=== PATIENT | female | born 1965 | race Caucasian/White ===

== ENCOUNTER → 2017-12-21 | Outpatient (CLI) | payer OTHER ==
[~2017-12-21] MED LIST: ABILIFY10 MG PO; ACETAMINOPHEN325 M1 PO; ASPIRIN EC81 M1 PO; B-122500 MCG PO; B12INJ; CIPROFLOXACIN500 M1 PO; DILANTIN100 MG PO; FLEXERIL PO; IBUPROFEN 800800 M1 PO; LEVAQUIN 500 M500 M2 PO; LEVOTHYROXINE 0.1 MG PO; LIPITOR20 MG PO; MEDROLDOSEPACK PO; MINOCYCLINE HC100 M2 PO; NICOTINE TRANSD14 M1 TD; NICOTINE TRANSD21 M1 TD; NICOTINE TRANSDE7 MG TD; NORCO 5-325 TA1 EACH PO; OMEPRAZOLE 20 M20 MG PO; OSELB75 PO; PERCOCET 5-3251 EACH PO; PREDNISONE 10 M10 MG PO; PROTONIX40 M1 PO; SYNTHROID88 MCG PO; VITAMIN D1000 UNI1 PO; WELLBUTRIN 100100 MG PO; WELLBUTRIN SR150 MG PO; ZANTAC 150MG T150 MG; ZOFRAN4 MG PO
[2017-12-21 17:30] LABS: ALBUMIN 3.7 g/dL (3.4-5.0); ALKALINE PHOSPHATASE 100 U/L (46-116); ANION GAP 10 mmol/L (7-16); BUN 22 mg/dL (7-18); CALCIUM 8.6 mg/dL (8.5-10.1); CHLORIDE 104 mmol/L (98-107); CHOLESTEROL 258 mg/dL (<200); CO2 25 mmol/L (21-32); CREATININE 0.8 mg/dL (0.6-1.3); GLUCOSE 98 mg/dL (70-99); HDL CHOLESTEROL 55 mg/dL (>40); LDL CHOLESTEROL 162 mg/dL (<100); POTASSIUM 3.7 mmol/L (3.5-5.1); SGOT 19 U/L (15-37); SGPT 27 U/L (30-65); SODIUM 139 mmol/L (136-145); TC:HDL 4.7 Ratio (Not establshd); TOTAL BILIRUBIN 0.4 mg/dL (<0.1-1.0); TOTAL PROTEIN 7.3 g/dL (6.4-8.2); TRIGLYCERIDE 206 mg/dL (<150); VLDL 41 mg/dL (<40)
[2017-12-21 17:32] LABS: SERUM ASSESSMENT Clear
== END ==
LOC: M.LAB 16:30
PROVIDERS: Nurse Practitioner Family
DX: E78.5 Hyperlipidemia, unspecified (principal); E03.9 Hypothyroidism, unspecified

== ENCOUNTER → 2018-01-20 | Outpatient (CLI) | payer OTHER ==
[2018-01-20 08:10] LABS: ALBUMIN 3.4 g/dL (3.4-5.0); CALCIUM 8.5 mg/dL (8.5-10.1); CREATININE 0.8 mg/dL (0.6-1.3); TOTAL BILIRUBIN 0.2 mg/dL (<0.1-1.0); TOTAL PROTEIN 6.9 g/dL (6.4-8.2)
== END ==
LOC: M.CT 01-18 10:58
PROVIDERS: Nurse Practitioner Family
DX: Z12.31 Encounter for screening mammogram for malignant neoplasm of breast (principal); M47.892 Other spondylosis, cervical region; M48.8X4 Other specified spondylopathies, thoracic region

== ENCOUNTER → 2018-02-01 | Outpatient (CLI) | payer OTHER | LOC: M.MRI 01-30 16:12 | DX: M47.892 Other spondylosis, cervical region (principal); M47.894 Other spondylosis, thoracic region; G89.29 Other chronic pain ==

== ENCOUNTER → 2018-05-01 | Outpatient (CLI) | payer OTHER | LOC: M.RAD 16:00 | DX: M81.0 Age-related osteoporosis without current pathological fracture (principal); Z78.0 Asymptomatic menopausal state ==

== ENCOUNTER → 2018-07-20 | Outpatient (CLI) | payer OTHER ==
[2018-07-20 09:09] LABS: HEMATOCRIT 43.8 % (37.0-47.0); HEMOGLOBIN 14.5 gm/dL (12.0-15.0); MCH 29.2 pg (26.0-34.0); MCHC 33.2 g/dL (28.0-37.0); MPV 7.7 fl. (7.2-11.1); RBC 4.97 mil/uL (4.20-5.00); RDW-CV 13.8 % (10.5-14.5); WBC 8.2 thou/uL (4.0-11.0)
[2018-07-20 09:33] LABS: ALBUMIN 3.7 g/dL (3.4-5.0); ALKALINE PHOSPHATASE 96 U/L (46-116); ANION GAP 10 mmol/L (7-16); BUN 17 mg/dL (7-18); CALCIUM 8.6 mg/dL (8.5-10.1); CHLORIDE 103 mmol/L (98-107); CHOLESTEROL 224 mg/dL (<200); CO2 24 mmol/L (21-32); CREATININE 0.8 mg/dL (0.6-1.3); GLUCOSE 94 mg/dL (70-99); HDL CHOLESTEROL 54 mg/dL (>40); LDL CHOLESTEROL 141 mg/dL (<100); POTASSIUM 3.9 mmol/L (3.5-5.1); SGOT 18 U/L (15-37); SGPT 31 U/L (30-65); SODIUM 137 mmol/L (136-145); TC:HDL 4.1 Ratio (Not establshd); TOTAL BILIRUBIN 0.3 mg/dL (<0.1-1.0); TOTAL PROTEIN 7.3 g/dL (6.4-8.2); TRIGLYCERIDE 145 mg/dL (<150); VLDL 29 mg/dL (<40)
[2018-07-20 09:35] LABS: SERUM ASSESSMENT Clear
[2018-07-20 10:41] LABS: IRON 65 ug/dL (50-175)
[2018-07-20 11:36] LABS: % SATURATION 16 % (20-39)
[2018-07-20 21:07] LABS: GLYCOHEMOGLOBIN (HGB A1C) 5.6 % (4.8-5.6)
== END ==
LOC: M.LAB 08:25
PROVIDERS: Nurse Practitioner Family
DX: E78.2 Mixed hyperlipidemia (principal); E03.9 Hypothyroidism, unspecified; E55.9 Vitamin D deficiency, unspecified; I10 Essential (primary) hypertension; R53.83 Other fatigue

== ENCOUNTER 2018-08-23 18:38 | Emergency (ER) | payer OTHER ==
[~2018-08-23] VITALS: Ht 175.3 cm; Wt 86.2 kg
[2018-08-23] MEDS ORDERED: MELOXICAM15 MG PO (18:47)
[2018-08-23] MEDS ORDERED: FOSAMAX 70 MG T70 MG PO (18:47)
[2018-08-23] MEDS ORDERED: HYDROCODONE-AP1 EAC6 PO (20:25)
[2018-08-23 20:51] VITALS: BP 122/75
== END 2018-08-23 20:51 | disposition home or self-care (01) ==
LOC: M.ERS 18:38
DX: S22.059A Unspecified fracture of T5-T6 vertebra, initial encounter for closed fracture (principal); E78.5 Hyperlipidemia, unspecified; F41.9 Anxiety disorder, unspecified; Z90.710 Acquired absence of both cervix and uterus; F17.210 Nicotine dependence, cigarettes, uncomplicated; Z88.0 Allergy status to penicillin; Z91.040 Latex allergy status; Z88.8 Allergy status to other drugs, medicaments and biological substances; W10.9XXA Fall (on) (from) unspecified stairs and steps, initial encounter; Y93.89 Activity, other specified; Y92.89 Other specified places as the place of occurrence of the external cause; Y99.8 Other external cause status

== ENCOUNTER → 2018-10-24 | Outpatient (CLI) | payer OTHER ==
[~2018-10-24] VITALS: Ht 175.3 cm; Wt 90.7 kg
[~2018-10-24] MED LIST changes: +FOSAMAX 70 MG T70 MG PO; +HYDROCODONE-AP1 EAC6 PO; -LEVOTHYROXINE 0.1 MG PO; +MELOXICAM15 MG PO; +PROVIGIL 100 M100 M1 PO; +SYNTHROID150 MCG PO
[2018-10-24 10:41] VITALS: BP 119/79
== END ==
LOC: M.INT 09:57
DX: M80.00XS Age-related osteoporosis with current pathological fracture, unspecified site, sequela (principal)

== ENCOUNTER → 2018-11-07 | Outpatient (CLI) | payer OTHER ==
[2018-11-07 09:55] VITALS: BP 127/76
[2018-11-07 10:25] LABS: HEMATOCRIT 39.7 % (37.0-47.0); HEMOGLOBIN 13.5 gm/dL (12.0-15.0); MCH 29.7 pg (26.0-34.0); MCHC 34.1 g/dL (28.0-37.0); MPV 7.2 fl. (7.2-11.1); RBC 4.56 mil/uL (4.20-5.00); RDW-CV 13.9 % (10.5-14.5)
[2018-11-07 10:34] LABS: APTT 28.6 Seconds (25.0-31.3); PROTIME 10.4 Seconds (9.20-11.50)
[2018-11-07 10:38] LABS: ALBUMIN 3.7 g/dL (3.4-5.0); CALCIUM 8.7 mg/dL (8.5-10.1); CREATININE 0.9 mg/dL (0.6-1.3); POTASSIUM 3.7 mmol/L (3.5-5.1); TOTAL BILIRUBIN 0.3 mg/dL (<0.1-1.0); TOTAL PROTEIN 7.1 g/dL (6.4-8.2)
--- NOTE | 2018-11-07 14:29 | EKG ---
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1965 Requested By: Lucius Shepherd Order Number: [id number] Cathie MD: Dany Coates Measurements Intervals [place] Rate: 65 P: 49 TN: 171 QRS: 44 QRSD: 86 T: 57 QT: 429 QTc: 447 Interpretive Statements Sinus rhythm Consider left atrial enlargement Abnormal R-wave progression, early transition Compared to ECG 01/22/2017 10:55:07 No significant changes Electronically Signed On 11-07-2018 14:28:51 SNAILER by Dany Coates [email or web address] <ELECTRONICALLY SIGNED> By: Dany Coates MD, [facility] 11/07/18 1428 1257 [id number] Dany Coates MD, FACC /EPI
== END | disposition home or self-care (01) ==
LOC: M.MRI 10-24 13:00
PROVIDERS: Radiology Diagnostic Radiology
DX: M80.08XA Age-related osteoporosis with current pathological fracture, vertebra(e), initial encounter for fracture (principal); M54.9 Dorsalgia, unspecified; I10 Essential (primary) hypertension; E78.5 Hyperlipidemia, unspecified; F41.9 Anxiety disorder, unspecified; F17.210 Nicotine dependence, cigarettes, uncomplicated; Z98.890 Other specified postprocedural states; Z90.710 Acquired absence of both cervix and uterus; Z79.899 Other long term (current) drug therapy; Z91.040 Latex allergy status; Z88.0 Allergy status to penicillin

== ENCOUNTER → 2018-11-16 | Outpatient (CLI) | payer OTHER | LOC: M.MRI 07:25 | DX: M54.6 Pain in thoracic spine (principal); Z98.890 Other specified postprocedural states ==

== ENCOUNTER → 2019-05-10 | Outpatient (CLI) | payer OTHER | LOC: M.LAB 09:34 | DX: E03.8 Other specified hypothyroidism (principal); E06.3 Autoimmune thyroiditis ==

== ENCOUNTER → 2019-07-26 | Outpatient (CLI) | payer OTHER ==
[2019-07-26 08:37] LABS: ABSOLUTE BASOPHILS 0.1 thou/uL (0.0-0.2); ABSOLUTE EOSINOPHILS 0.2 thou/uL (0.0-0.7); ABSOLUTE LYMPHOCYTES 1.9 thou/uL (0.8-5.3); ABSOLUTE MONOCYTES 0.5 thou/uL (0.0-1.2); ABSOLUTE NEUTROPHILS 3.6 thou/uL (1.6-8.1); BASOPHILS 1.2 %; HEMATOCRIT 42.9 % (37.0-47.0); HEMOGLOBIN 14.8 gm/dL (12.0-15.0); LYMPHOCYTES 30.4 %; MCHC 34.4 g/dL (28.0-37.0); MCV 87.1 fL (80.0-100.0); MONOCYTES 8.5 %; MPV 6.7 fl. (7.2-11.1); NUCLEATED RBCS 0 /100WBC; PLATELET COUNT* 372 thou/uL (150-400); POLYS 56.9 %; RBC 4.92 mil/uL (4.20-5.00); RDW-CV 13.4 % (10.5-14.5); WBC 6.3 thou/uL (4.0-11.0)
[2019-07-26 08:52] LABS: ALBUMIN 3.6 g/dL (3.4-5.0); CALCIUM 8.9 mg/dL (8.5-10.1); CREATININE 0.9 mg/dL (0.6-1.3); POTASSIUM 4.1 mmol/L (3.5-5.1); TOTAL BILIRUBIN 0.3 mg/dL (<0.1-1.0); TOTAL PROTEIN 7.5 g/dL (6.4-8.2)
[2019-07-27 02:07] LABS: GLYCOHEMOGLOBIN (HGB A1C) 5.5 % (4.8-5.6)
== END ==
LOC: M.LAB 08:05
PROVIDERS: Internal Medicine
DX: E06.3 Autoimmune thyroiditis (principal); E03.8 Other specified hypothyroidism

== ENCOUNTER → 2019-10-12 | Outpatient (CLI) | payer OTHER | LOC: M.CT 11:17 | DX: M80.00XA Age-related osteoporosis with current pathological fracture, unspecified site, initial encounter for fracture (principal) ==

== ENCOUNTER → 2019-10-31 | Outpatient (CLI) | payer OTHER | LOC: M.MRI 10-16 13:38 → M.RAD 10-24 11:00 → M.MRI 10-24 11:30 | DX: S22.04 Fracture of fourth thoracic vertebra (principal); S22.060D Wedge compression fracture of T7-T8 vertebra, subsequent encounter for fracture with routine healing; S22.050G Wedge compression fracture of T5-T6 vertebra, subsequent encounter for fracture with delayed healing; M81.6 Localized osteoporosis [Lequesne]; M25.78 Osteophyte, vertebrae; M48.04 Spinal stenosis, thoracic region; E28.39 Other primary ovarian failure; X58.XXXD Exposure to other specified factors, subsequent encounter ==

== ENCOUNTER → 2019-12-31 | Outpatient (CLI) | payer OTHER | LOC: M.LAB 19:39 | DX: Z11.59 Encounter for screening for other viral diseases (principal); Z20.828 Contact with and (suspected) exposure to other viral communicable diseases ==

== ENCOUNTER → 2020-06-01 | Outpatient (CLI) | payer OTHER ==
[~2020-06-01] MED LIST changes: +NORCO 5-325 TA1 EAC2 PO
[2020-06-01 18:08] LABS: ABSOLUTE BASOPHILS 0.1 thou/uL (0.0-0.2); ABSOLUTE EOSINOPHILS 0.3 thou/uL (0.0-0.7); ABSOLUTE LYMPHOCYTES 2.6 thou/uL (0.8-5.3); ABSOLUTE MONOCYTES 0.7 thou/uL (0.0-1.2); ABSOLUTE NEUTROPHILS 4.5 thou/uL (1.6-8.1); EOSINOPHILS 3.4 %; HEMATOCRIT 40.7 % (37.0-47.0); HEMOGLOBIN 14.1 gm/dL (12.0-15.0); LYMPHOCYTES 32.1 %; MCH 30.2 pg (26.0-34.0); MCHC 34.5 g/dL (28.0-37.0); MCV 87.4 fL (80.0-100.0); MONOCYTES 8.6 %; MPV 6.9 fl. (7.2-11.1); NUCLEATED RBCS 0 /100WBC; PLATELET COUNT* 332 thou/uL (150-400); POLYS 54.9 %; RBC 4.66 mil/uL (4.20-5.00); RDW-CV 13.2 % (10.5-14.5); WBC 8.2 thou/uL (4.0-11.0)
[2020-06-01 18:22] LABS: ALBUMIN 3.7 g/dL (3.4-5.0); ALKALINE PHOSPHATASE 74 U/L (46-116); ANION GAP 8 mmol/L (7-16); BUN 17 mg/dL (7-18); CALCIUM 8.5 mg/dL (8.5-10.1); CHLORIDE 104 mmol/L (98-107); CHOLESTEROL 247 mg/dL (<200); CO2 27 mmol/L (21-32); CREATININE 1.1 mg/dL (0.6-1.3); GLUCOSE 96 mg/dL (70-99); HDL CHOLESTEROL 39 mg/dL (>40); POTASSIUM 4.1 mmol/L (3.5-5.1); SGOT 22 U/L (15-37); SGPT 31 U/L (30-65); SODIUM 139 mmol/L (136-145); TC:HDL 6.3 Ratio (Not establshd); TOTAL BILIRUBIN 0.2 mg/dL (<0.1-1.0); TOTAL PROTEIN 7.8 g/dL (6.4-8.2); TRIGLYCERIDE 422 mg/dL (<150); VLDL 84 mg/dL (<40)
[2020-06-01 18:23] LABS: SERUM ASSESSMENT Clear
== END ==
LOC: M.LAB 16:35
PROVIDERS: ATTEND Nurse Practitioner Family
DX: E78.2 Mixed hyperlipidemia (principal); E03.9 Hypothyroidism, unspecified; E55.9 Vitamin D deficiency, unspecified; M81.0 Age-related osteoporosis without current pathological fracture

== ENCOUNTER 2020-08-13 15:40 | Emergency (ER) | payer OTHER ==
[~2020-08-13] VITALS: Ht 175.3 cm; Wt 90.7 kg
[2020-08-13 16:42] LABS: INFLUENZA A ANTIGEN Negative (Negative); INFLUENZA B ANTIGEN Negative (Negative)
[2020-08-13 16:42] LABS: ABSOLUTE BASOPHILS 0.1 thou/uL (0.0-0.2); ABSOLUTE EOSINOPHILS 0.1 thou/uL (0.0-0.7); ABSOLUTE LYMPHOCYTES 2.4 thou/uL (0.8-5.3); ABSOLUTE MONOCYTES 0.7 thou/uL (0.0-1.2); ABSOLUTE NEUTROPHILS 7.1 thou/uL (1.6-8.1); BASOPHILS 1.1 %; EOSINOPHILS 1.4 %; HEMATOCRIT 42.3 % (37.0-47.0); HEMOGLOBIN 14.2 gm/dL (12.0-15.0); LYMPHOCYTES 22.5 %; MCH 29.1 pg (26.0-34.0); MCHC 33.5 g/dL (28.0-37.0); MONOCYTES 6.9 %; MPV 6.5 fl. (7.2-11.1); NUCLEATED RBCS 0 /100WBC; PLATELET COUNT* 349 thou/uL (150-400); POLYS 68.1 %; RBC 4.86 mil/uL (4.20-5.00); RDW-CV 13.6 % (10.5-14.5); WBC 10.5 thou/uL (4.0-11.0)
--- NOTE | 2020-08-13 16:46 | EKG ---
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: : 1965 Requested By: Kayli Donohue Order Number: [id number] MD: Dany Coates Measurements Intervals [place] Rate: 95 P: 12 VT: 176 QRS: 22 QRSD: 92 T: 22 QT: 358 QTc: 450 Interpretive Statements Sinus rhythm Low voltage, precordial leads Compared to ECG 11/07/2018 12:57:52 Low QRS voltage now present Electronically Signed On 08-13-2020 16:45:57 BOX STACKER by Dany Coates [email or web address] <ELECTRONICALLY SIGNED> By: Dany Coates MD, [facility] 08/13/20 1645 1628 1628 Dany Coates MD, [facility] /EPI
[2020-08-13 16:52] LABS: CALCIUM 8.7 mg/dL (8.5-10.1); CREATININE 0.9 mg/dL (0.6-1.3); POTASSIUM 3.7 mmol/L (3.5-5.1)
[2020-08-13 16:57] LABS: ALBUMIN 3.9 g/dL (3.4-5.0); TOTAL BILIRUBIN 0.3 mg/dL (<0.1-1.0); TOTAL PROTEIN 7.9 g/dL (6.4-8.2)
[2020-08-13] MEDS ORDERED: DOXYCYCLINE 10100 MG PO (18:25)
[2020-08-13] MEDS ORDERED: PREDNISONE 20 M20 MG PO (18:25)
[2020-08-13] MEDS ORDERED: ONDANSETRON HCL4 M2 PO (18:25)
[2020-08-13 18:34] VITALS: BP 128/82
[2020-08-13] MEDS ORDERED: FOSAMAX 70 MG T70 MG PO (18:37)
[2020-08-13] MEDS ORDERED: MELOXICAM15 MG PO (18:37)
[2020-08-13] MEDS ORDERED: LIPITOR 10 MG10 M1 PO (18:37)
== END 2020-08-13 18:35 | disposition home or self-care (01) ==
LOC: M.ERS 15:40
PROVIDERS: Nurse Practitioner Family
DX: B34.9 Viral infection, unspecified (principal); Z20.828 Contact with and (suspected) exposure to other viral communicable diseases; E78.5 Hyperlipidemia, unspecified; M81.0 Age-related osteoporosis without current pathological fracture; F17.210 Nicotine dependence, cigarettes, uncomplicated; Z79.899 Other long term (current) drug therapy; Z88.0 Allergy status to penicillin; Z88.8 Allergy status to other drugs, medicaments and biological substances; Z90.710 Acquired absence of both cervix and uterus

== ENCOUNTER → 2020-10-02 | Outpatient (CLI) | payer OTHER ==
[~2020-10-02] MED LIST changes: +DOXYCYCLINE 10100 MG PO; +LIPITOR 10 MG10 M1 PO; +ONDANSETRON HCL4 M2 PO; +PREDNISONE 20 M20 MG PO
[2020-10-02 14:08] LABS: LDL (DIRECT) CHOL 159 mg/dL (0-99)
== END ==
LOC: M.LAB 05:56
PROVIDERS: ATTEND Nurse Practitioner Family
DX: E55.9 Vitamin D deficiency, unspecified (principal); E03.9 Hypothyroidism, unspecified; E78.1 Pure hyperglyceridemia; E78.2 Mixed hyperlipidemia

== ENCOUNTER 2020-11-05 15:02 | Emergency (ER) | payer OTHER ==
[~2020-11-05] VITALS: Ht 175.3 cm; Wt 95.3 kg
[2020-11-05] MEDS ORDERED: HYDROCODON-ACE1 EAC7 PO (17:33)
[2020-11-05] MEDS ORDERED: FLEXERIL PO (17:33)
[2020-11-05 17:47] VITALS: BP 141/85
== END 2020-11-05 17:47 | disposition home or self-care (01) ==
LOC: M.ERS 15:02
DX: S06.0X0A Concussion without loss of consciousness, initial encounter (principal); E78.5 Hyperlipidemia, unspecified; F17.210 Nicotine dependence, cigarettes, uncomplicated; Z88.0 Allergy status to penicillin; Z88.8 Allergy status to other drugs, medicaments and biological substances; Z90.710 Acquired absence of both cervix and uterus; W01.0XXA Fall on same level from slipping, tripping and stumbling without subsequent striking against object, initial encounter; Y93.89 Activity, other specified; Y92.89 Other specified places as the place of occurrence of the external cause; Y99.8 Other external cause status

== ENCOUNTER → 2021-01-27 | Outpatient (CLI) | payer OTHER ==
[~2021-01-27] MED LIST changes: +HYDROCODON-ACE1 EAC7 PO
[2021-01-27 05:42] LABS: CHOLESTEROL 210 mg/dL (<200); HDL CHOLESTEROL 42 mg/dL (>40); LDL CHOLESTEROL 135 mg/dL (<100); TRIGLYCERIDE 169 mg/dL (<150); VLDL 34 mg/dL (<40)
[2021-01-27 05:45] LABS: SERUM ASSESSMENT Clear
== END ==
LOC: M.LAB 05:13
PROVIDERS: ATTEND Nurse Practitioner Family
DX: E78.2 Mixed hyperlipidemia (principal); E03.9 Hypothyroidism, unspecified

== ENCOUNTER → 2021-06-05 | Emergency (ER) | payer OTHER ==
[~2021-06-05] VITALS: Ht 175.3 cm; Wt 95.3 kg
[2021-06-05 06:08] LABS: ABSOLUTE BASOPHILS 0.2 thou/uL (0.0-0.2); ABSOLUTE EOSINOPHILS 0.1 thou/uL (0.0-0.7); ABSOLUTE LYMPHOCYTES 2.9 thou/uL (0.8-5.3); ABSOLUTE MONOCYTES 0.8 thou/uL (0.0-1.2); ABSOLUTE NEUTROPHILS 8.7 thou/uL (1.6-8.1); BASOPHILS 1.3 %; EOSINOPHILS 0.7 %; HEMATOCRIT 39.5 % (37.0-47.0); HEMOGLOBIN 13.2 gm/dL (12.0-15.0); LYMPHOCYTES 22.7 %; MCH 28.6 pg (26.0-34.0); MCHC 33.4 g/dL (28.0-37.0); MCV 85.4 fL (80.0-100.0); MONOCYTES 6.2 %; MPV 6.6 fl. (7.2-11.1); NUCLEATED RBCS 0 /100WBC; PLATELET COUNT* 369 thou/uL (150-400); POLYS 69.1 %; RBC 4.63 mil/uL (4.20-5.00); RDW-CV 13.8 % (10.5-14.5); WBC 12.6 thou/uL (4.0-11.0)
[2021-06-05 06:49] LABS: CALCIUM 8.6 mg/dL (8.5-10.1); POTASSIUM 4.1 mmol/L (3.5-5.1)
[2021-06-05 06:55] LABS: ALBUMIN 3.8 g/dL (3.4-5.0); TOTAL BILIRUBIN 0.1 mg/dL (<0.1-1.0); TOTAL PROTEIN 7.7 g/dL (6.4-8.2)
[2021-06-05 07:08] VITALS: BP 134/91
--- NOTE | 2021-06-05 09:53 | EKG ---
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: : 1965 Requested By: Lynne Romero Order Number: [id number] MD: David Christopher Measurements Intervals [place] Rate: 70 P: 33 NM: 167 QRS: 16 QRSD: 91 T: 34 QT: 386 QTc: 417 Interpretive Statements Sinus rhythm Probable left atrial enlargement Compared to ECG 08/13/2020 16:28:30 No significant changes Electronically Signed On 06-05-2021 9:52:59 CDT by David Christopher [email or web address] <ELECTRONICALLY SIGNED> By: David Christopher MD, [facility] 06/05/2152 0545 0545 David Christopher MD, [facility] /EPI
== END ==
LOC: M.ERS 05:41
PROVIDERS: Emergency Medicine
DX: R10.13 Epigastric pain (principal); F90.9 Attention-deficit hyperactivity disorder, unspecified type; F41.9 Anxiety disorder, unspecified; E78.5 Hyperlipidemia, unspecified; M81.0 Age-related osteoporosis without current pathological fracture; F17.210 Nicotine dependence, cigarettes, uncomplicated; Z79.899 Other long term (current) drug therapy; Z90.710 Acquired absence of both cervix and uterus; Z88.0 Allergy status to penicillin; Z88.8 Allergy status to other drugs, medicaments and biological substances

== ENCOUNTER → 2021-06-15 | Outpatient (CLI) | payer OTHER ==
[2021-06-15 10:02] LABS: ABSOLUTE EOSINOPHILS 0.2 thou/uL (0.0-0.7); ABSOLUTE LYMPHOCYTES 2.1 thou/uL (0.8-5.3); ABSOLUTE MONOCYTES 0.6 thou/uL (0.0-1.2); ABSOLUTE NEUTROPHILS 5.5 thou/uL (1.6-8.1); BASOPHILS 0.6 %; EOSINOPHILS 2.4 %; HEMATOCRIT 39.1 % (37.0-47.0); HEMOGLOBIN 13.1 gm/dL (12.0-15.0); LYMPHOCYTES 25.1 %; MCH 29.1 pg (26.0-34.0); MCHC 33.5 g/dL (28.0-37.0); MCV 86.9 fL (80.0-100.0); MONOCYTES 6.8 %; MPV 6.8 fl. (7.2-11.1); NUCLEATED RBCS 0 /100WBC; PLATELET COUNT* 332 thou/uL (150-400); POLYS 65.1 %; RDW-CV 13.8 % (10.5-14.5); WBC 8.5 thou/uL (4.0-11.0)
[2021-06-15 10:11] LABS: ALBUMIN 3.7 g/dL (3.4-5.0); ALKALINE PHOSPHATASE 83 U/L (46-116); ANION GAP 7 mmol/L (7-16); BUN 12 mg/dL (7-18); CALCIUM 8.7 mg/dL (8.5-10.1); CHLORIDE 102 mmol/L (98-107); CHOLESTEROL 288 mg/dL (<200); CO2 29 mmol/L (21-32); GLUCOSE 94 mg/dL (70-99); HDL CHOLESTEROL 53 mg/dL (>40); LDL CHOLESTEROL 185 mg/dL (<100); POTASSIUM 3.9 mmol/L (3.5-5.1); SGOT 17 U/L (15-37); SGPT 27 U/L (30-65); SODIUM 138 mmol/L (136-145); TC:HDL 5.4 Ratio (Not establshd); TOTAL BILIRUBIN 0.3 mg/dL (<0.1-1.0); TOTAL PROTEIN 7.5 g/dL (6.4-8.2); TRIGLYCERIDE 254 mg/dL (<150); VLDL 51 mg/dL (<40)
[2021-06-15 10:16] LABS: SERUM ASSESSMENT Clear
== END ==
LOC: M.LAB 09:13
PROVIDERS: ATTEND Specialist
DX: E03.8 Other specified hypothyroidism (principal); E06.3 Autoimmune thyroiditis; L50.9 Urticaria, unspecified; M81.0 Age-related osteoporosis without current pathological fracture; E55.9 Vitamin D deficiency, unspecified; Z79.899 Other long term (current) drug therapy